=== PATIENT | male | born 1990 | race American Indian/Alaskan Native ===

== ENCOUNTER 2016-08-04 14:02 | Emergency (ER) | payer SELFPAY ==
[2016-08-04] MEDS ORDERED: MORPHINE IV ONE (14:29)
[2016-08-04] MEDS ORDERED: ZOFRAN IV ONE (14:29)
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
[2016-08-04 15:11] LABS: Basophils % (Auto) 0.7 % (0.0-1.8); Eosinophils % (Auto) 0.8 % (0.0-4.3); Hematocrit 43.4 % (35.5-45.6); Hemoglobin 13.9 gm/dl (11.8-15.2); Mean Corpuscular HGB Conc 32 % (32-34); Mean Corpuscular Hemoglobin 29 pg (28-32); Mean Corpuscular Volume 91 fl (84-94); Platelet Count 281 K/mm3 (140-440); Red Blood Count 4.77 M/mm3 (3.65-5.03); Red Cell Distribution Width 14.1 % (13.2-15.2); White Blood Count 7.3 K/mm3 (4.5-11.0)
[2016-08-04 15:21] LABS: INR 0.9 (0.87-1.13)
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
[2016-08-04 15:22] LABS: Partial Thromboplastin Time 30.4 Sec. (24.2-36.6)
[2016-08-04 15:24] LABS: Anion Gap 19 mmol/L; BUN/Creatinine Ratio 8.88; Blood Urea Nitrogen 8 mg/dL (9-20); Calcium 8.7 mg/dL (8.4-10.2); Carbon Dioxide 23 mmol/L (22-30); Chloride 100.5 mmol/L (98-107); Glucose 68 mg/dL (75-100); Potassium 3.8 mmol/L (3.6-5.0); Sodium 139 mmol/L (137-145)
--- NOTE | 2016-08-04 15:24 | Cat Scan Report ---
CT LUMBAR SPINE WITHOUT CONTRAST INDICATION: Trauma, Lower back pain. COMPARISON: None similar. FINDINGS: Noncontrast axial, sagittal and coronal CT reconstructions through the lumbar spine demonstrate normal vertebral body stature and alignment. Preserved disc heights. No large disc protrusion or spinal stenosis suspected. CONCLUSION: No acute lumbar spine CT abnormality, as described. Please correlate. Thank you for the opportunity to participate in this patient's care.
--- NOTE | 2016-08-04 15:37 | Emergency Department Report ---
ED General Adult HPI - General Chief complaint: Fall Stated complaint: FELL / LEFT ARE INJURY Time Seen by Provider: 08/04/16 14:26 Source: patient Mode of arrival: Ambulatory Limitations: No Limitations - History of Present Illness Initial comments: The patient states that he fell off a ladder which was on the side of a house onto a grassy area. He complains of pain principally in his left shoulder area as well as his left upper chest. He also states he has some discomfort in his lower back and his neck. He has no difficulty in breathing. He denies abdominal pain. He states he is not taking any anticoagulant nor any other chronic medication. -: Sudden (slip and fall no presyncope no prodromal symptoms) Location: neck, chest, back, left, upper extremity Radiation: non-radiation Quality: aching Consistency: constant Improves with: none Worsens with: movement Associated Symptoms: denies other symptoms Treatments Prior to Arrival: none - Related Data Previous Rx's Medication Instructions Recorded Last Taken Type HYDROcodone/APAP 5-325 [[place] 1 each PO Q6HR PRN #14 tablet 08/04/16 Unknown Rx 5/325] Allergies Allergy/AdvReac Type Severity Reaction Status Date / Time No Known Allergies Allergy Unverified 08/04/16 14:16 ED Review of Systems ROS: Stated complaint: FELL / LEFT ARE INJURY Other details as noted in HPI Constitutional: denies: chills, fever Eyes: denies: eye pain, eye discharge, vision change ENT: denies: ear pain, throat pain Respiratory: denies: cough, shortness of breath, wheezing Cardiovascular: as per HPI, chest pain. denies: palpitations Endocrine: no symptoms reported Gastrointestinal: denies: abdominal pain, nausea, diarrhea Genitourinary: denies: urgency, dysuria Musculoskeletal: as per HPI, back pain, other. denies: joint swelling, arthralgia Skin: denies: rash, lesions Neurological: denies: headache, weakness, numbness, paresthesias, confusion, abnormal gait, vertigo Psychiatric: denies: anxiety, depression Hematological/Lymphatic: denies: easy bleeding, easy bruising ED Past Medical Hx - Past Medical History Previous Medical History?: No - Surgical History Past Surgical History?: No - Social History Smoking Status: Current Every Day Smoker Substance Use Type: None - Medications Home Medications: Home Medications Medication Instructions Recorded Confirmed Last Taken Type HYDROcodone/APAP 5-325 [[place] 1 each PO Q6HR PRN #14 tablet 08/04/16 Unknown Rx 5/325] ED Physical Exam - General Limitations: No Limitations General appearance: alert, in no apparent distress - Head Head exam: Present: atraumatic, normocephalic - Eye Eye exam: Present: normal appearance, PERRL, EOMI. Absent: scleral icterus - ENT ENT exam: Present: mucous membranes moist - Neck Neck exam: Present: normal inspection, tenderness (mild perivertebral on the left, no bony tenderness) - Respiratory Respiratory exam: Present: normal lung sounds bilaterally, chest wall tenderness (left upper lateral and anterior ribs). Absent: respiratory distress - Cardiovascular Cardiovascular Exam: Present: regular rate, normal rhythm. Absent: systolic murmur, diastolic murmur, rubs, gallop - GI/Abdominal GI/Abdominal exam: Present: soft, normal bowel sounds. Absent: distended, tenderness, guarding, rebound, rigid, organomegaly, mass, bruit, pulsatile mass , hernia - Rectal Rectal exam: Present: deferred - Extremities Exam Extremities exam: Present: normal inspection, tenderness (left shoulder no gross deformity), normal capillary refill. Absent: pedal edema, joint swelling , calf tenderness - Back Exam Back exam: Present: normal inspection, tenderness (diffuse paravertebral lumbar no T-spine tenderness). Absent: CVA tenderness (R), CVA tenderness (L) - Neurological Exam Neurological exam: Present: alert, oriented X3, CN II-XII intact. Absent: motor sensory deficit - Psychiatric Psychiatric exam: Present: normal affect, normal mood - Skin Skin exam: Present: warm, dry, intact, normal color, other (there is a remarkable lack of traumatic skin changes). Absent: rash ED Course Vital Signs 08/04/16 08/04/16 08/04/16 14:16 14:53 15:30 Temperature 98.7 F Pulse Rate 74 Respiratory 18 18 18 Rate Blood Pressure 125/77 O2 Sat by Pulse 99 100 Oximetry - Reevaluation(s) Reevaluation #1: Patient remains hemodynamically stable. No supplemental complaints. No significant tenderness on palpation or range of motion. 08/04/16 15:42 ED Medical Decision Making - Lab Data Result diagrams: 08/04/16 Unknown 08/04/16 Unknown Laboratory Results - last 24 hr 08/04/16 08/04/16 08/04/16 Unknown Unknown Unknown WBC 7.3 RBC 4.77 Hgb 13.9 Hct 43.4 MCV 91 MCH 29 MCHC 32 RDW 14.1 Plt Count 281 Lymph % (Auto) 31.7 [place] % (Auto) 8.9 H Eos % (Auto) 0.8 Baso % (Auto) 0.7 Lymph # 2.3 [place] # 0.6 Eos # 0.1 Baso # 0.0 Seg Neutrophils % 57.9 Seg Neutrophils # 4.2 PT 12.0 L INR 0.90 APTT 30.4 Sodium 139 Potassium 3.8 Chloride 100.5 Carbon Dioxide 23 Anion Gap 19 BUN 8 L Creatinine 0.9 Estimated GFR > 60 BUN/Creatinine Ratio 8.88 Glucose 68 L Calcium 8.7 - Radiology Data Radiology results: report reviewed interpreted by me: No acute process CT cervical and lumbar spine. The x-rays of the humerus and chest were likewise negative. See report for some incidental findings Critical care attestation.: If time is entered above; I have spent that time in minutes in the direct care of this critically ill patient, excluding procedure time. ED Disposition Clinical Impression: Soft tissue injury, Strain of muscle, fascia and tendon of lower back, initial encounter Cervical strain Qualifiers: Encounter type: initial encounter Qualified Code(s): S16.1XXA - Strain of muscle, fascia and tendon at neck level, initial encounter Disposition: DISCHARGED TO HOME OR SELFCARE Is pt being admited?: No Does the pt Need Aspirin: No Condition: Stable Instructions: Cervical Spine Strain (ED), Low Back Strain (ED), Contusion in Adults (ED) Additional Instructions: Return any acute change or problem. Follow-up with orthopedist any persistent painful area. Prescriptions: HYDROcodone/APAP 5-325 [[place] 5/325] 1 each PO Q6HR PRN #14 tablet PRN Reason: Pain Referrals: FRANCISCO JAVIER PERKINS MD [Staff Physician] - 3-5 Days Time of Disposition: 15:39
[2016-08-04 16:13] VITALS: BP 131/83
== END 2016-08-04 15:43 | disposition home or self-care (01) ==
LOC: ED 14:02
DX: S33.5XXA Sprain of ligaments of lumbar spine, initial encounter (principal); S16.1XXA Strain of muscle, fascia and tendon at neck level, initial encounter; F17.200 Nicotine dependence, unspecified, uncomplicated; W11.XXXA Fall on and from ladder, initial encounter; Y93.9 Activity, unspecified; Y92.9 Unspecified place or not applicable; Y99.9 Unspecified external cause status
CPT/HCPCS: 36415; 71010; 72125; 72131; 73060; 80048; 85025; 85610; 85730; 96374; 96375; 99285; J2270; J2405

== ENCOUNTER 2017-03-05 12:05 | Emergency (ER) | payer SELFPAY ==
--- NOTE | 2017-03-05 14:32 | XRay Report ---
FACIAL BONES, 4 views: History: Facial trauma, pain, swelling A mildly displaced fracture is identified through the angle of the left mandible. The remainder of the mandible is grossly intact. Normal articulation at the temporomandibular joints. The remaining facial bones are intact. The sinuses are well-aerated. The orbital cavities are symmetric and unremarkable. IMPRESSION: Mandible fracture. Further evaluation with CT facial bones is recommended.
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
[2017-03-05] MEDS ORDERED: TORADOL IM ONE (14:41)
[2017-03-05] MEDS ORDERED: ZOFRAN ORAL LIQ PO ONE (14:41)
[2017-03-05] MEDS ORDERED: PERCOCET 5/325 PO ONE (14:41)
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
[2017-03-05 19:15] VITALS: BP 135/74
== END 2017-03-05 19:37 | disposition other institution (70) ==
LOC: ED 12:05
DX: H66.91 Otitis media, unspecified, right ear (principal); H60.91 Unspecified otitis externa, right ear; F17.210 Nicotine dependence, cigarettes, uncomplicated
CPT/HCPCS: 70150; 70450; 70486; 72125; 96372; 99285; J1885; Q0162

== ENCOUNTER 2017-11-26 05:53 | Emergency (ER) | payer OTHER ==
[2017-11-26 05:59] VITALS: BP 139/117
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
== END 2017-11-26 06:40 | disposition left against medical advice (07) ==
LOC: ED 05:53
DX: M25.562 Pain in left knee (principal); Z53.21 Procedure and treatment not carried out due to patient leaving prior to being seen by health care provider